=== PATIENT | female | born 1995 | race African-American/Black ===

== ENCOUNTER 2018-06-26 21:07 | Emergency (ER) | payer MEDICARE ==
[~2018-06-26] VITALS: Ht 165.1 cm; Wt 83.9 kg
[2018-06-26] MEDS ORDERED: CEFTRIAXONE SOD 1 GM VIAL IM ONE (21:45)
[2018-06-26 22:08] VITALS: BP 128/76
== END 2018-06-26 22:10 | disposition home or self-care (01) ==
LOC: FSED 21:07
DX: R30.0 Dysuria (principal); R10.2 Pelvic and perineal pain; N30.00 Acute cystitis without hematuria; N10 Acute pyelonephritis
CPT/HCPCS: 81003; 81025; 99283